=== PATIENT | male | born 1955 | race African-American/Black ===

== ENCOUNTER 2018-02-16 12:13 | Emergency (ER) | payer MEDICAID ==
[~2018-02-16] VITALS: Ht 157.5 cm; Wt 68.0 kg
[2018-02-16] MEDS ORDERED: ACETAMINOPHEN 325MG TABLET PO ONE (13:45)
[2018-02-16 16:07] VITALS: BP 131/87
== END 2018-02-16 16:29 | disposition home or self-care (01) ==
LOC: ER 12:43
DX: S00.03XA Contusion of scalp, initial encounter (principal); J45.909 Unspecified asthma, uncomplicated; E78.00 Pure hypercholesterolemia, unspecified; I10 Essential (primary) hypertension; Z85.46 Personal history of malignant neoplasm of prostate; Y00.XXXA Assault by blunt object, initial encounter; Y93.89 Activity, other specified; Y92.488 Other paved roadways as the place of occurrence of the external cause
CPT/HCPCS: 70450; 99284; Z7610